=== PATIENT | male | born 1940 | race Caucasian/White ===

== ENCOUNTER 2019-04-07 10:14 | Day surgery (SDC) | payer MEDICARE, BC ==
[2019-04-05 12:24] VITALS: BMI 30.7
[~2019-04-07 10:14] MED LIST: DEXAMETHASONE SOD PHOSPHATE 10 MG/ML 1 ML VIAL IV ONE; HYDROmorphone 0.5 MG/0.5 ML SYRINGE IVP PRN; LACTATED RINGERS 1,000 ML IV SCH; LIDOCAINE 1% 20 ML VIAL (10MG/ML) FOR IV START INTRADERMA PRN; MIDAZOLAM 2 MG/2 ML VIAL IV PRN; ONDANSETRON 4 MG/2 ML VIAL IVP ONE; Pre Op ABX Message 1 EACH MISC MISCELLANE ONE; SCOPOLAMINE 1.5MG/72HR PATCH TRANSDERM ONE
[2019-04-07] MEDS ORDERED: LABETALOL 5 MG/ML VIAL MDV IV ONE ×2 (11:42→12:04)
[2019-04-07] MEDS ORDERED: LABETALOL SYRINGE 5 MG/ML IVP ONE (12:30)
[2019-04-07] MEDS ORDERED: MIDAZOLAM 2 MG/2 ML VIAL ONE (12:46)
[2019-04-07] MEDS ORDERED: SUCCINYLCHOLINE CHLORIDE 100 MG/5 ML SYR IV ONE (12:46)
[2019-04-07] MEDS ORDERED: PROPOFOL 10 MG/ML 20 ML VIAL IV ONE (12:46)
[2019-04-07] MEDS ORDERED: fentaNYL (PF) 50 MCG/ML 2 ML AMP ONE (12:46)
[2019-04-07] MEDS ORDERED: ePHEDrine SULFATE/0.9% NACL/PF 50 MG/5 ML SYRINGE IV ONE (12:46)
[2019-04-07] MEDS ORDERED: LIDOCAINE 1% INJ 10MG/ML (20 ML MDV) ONE (12:46)
[2019-04-07] MEDS ORDERED: LIDOCAINE 1%-EPI 1:100,000 20 ML VIAL SQ ONE (13:18)
[2019-04-07] MEDS ORDERED: BUPIVACAIN-EPI 0.5%-1:200,000 30 ML VIAL SQ ONE ×2 (13:18)
[2019-04-07] MEDS ORDERED: BACITRACIN 500 UNIT/GM OINT 28.4 GM TUBE TOPICAL ONE (13:50)
[2019-04-07] MEDS ORDERED: LACTATED RINGERS 1,000 ML IV ONE (14:02)
[2019-04-07] MEDS ORDERED: FERRIC SUBSULFATE (MONSELS) JAR TOPICAL ONE (14:06)
[2019-04-07 14:26] VITALS: TEMP 97.3
--- NOTE | 2019-04-07 14:32 | P.OP ---
Date of Procedure: 04/07/19 Preoperative Diagnosis: 1.8 cm left ear lesion 1.6 cm left pre-auricular lesion Postoperative Diagnosis: Same Procedure(s) Performed: Excision of a 1.8 cm left auricular lesion with a full-thickness skin graft and a complex closure of the donor site which measures 2.6 cm Shave excision of a 1.6 cm left preauricular lesion Anesthesia: JAYSHREEA Surgeon: Jacob Zavala Estimated Blood Loss (ml): 5 Pathology: other (Both lesions were sent as described above) Condition: stable Disposition: PACU Indications for Procedure: Patient had 2 lesions were he was requesting surgical removal wonders of the pars triangularis of the left ear anteriorly and the other one was of the prea uricular region. Operative Findings: Complete removal Description of Procedure: This patient was taken to the operative room and placed in the supine position. A general inhalation anesthetic was administered to the patient by mask and subsequently intubated with a cuffed endotracheal tube by the department of anesthesia and monitored throughout the entire case by the department of anesthesia. A functioning IV line was in place The left face was sterilely prepped and draped in usual fashion and anesthetized appropriately. With use of a dermal blade the left 1.6 cm preauricular lesion was removed with a shave removal. This was sent for pathology. Monsel solution was placed for hemostasis. 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 This was excised with use of a 15 blade and a circular incision. He was sent for permanent analysis. Was marked with a black suture inferiorly and a blue suture medially. He was phthisis was obtained with use of cauterization. This left a large defect of the left ear. An appropriate amount of skin was harvested from the left postauricular region with a 15 blade. This measured 2.6 cm x 2 cm. We did extensive undermining in all directions and close this in a complex fashion utilizing a 4-0 Monocryl deeply 4-0 Monocryl in the subcutaneous tissue and a 50 rapid Vicryl in a running nonlocking fashion. Excellent closure was obtained of the donor site. The skin was then cut to size and prepped and placed as an overlay graft. A bolster dressing was applied and the patient tolerated this well. Follow-up will be in the office in 1 week and the patient is to contact me if any problems should arise in the interim.
[2019-04-07 15:12] VITALS: RESP 18
[2019-04-07 15:25] VITALS: BP 175/90; PULSE 67
== END 2019-04-07 15:44 | disposition home or self-care (01) ==
LOC: OR 10:14
PROVIDERS: ATTEND Otolaryngology
DX: C44.219 Basal cell carcinoma of skin of left ear and external auricular canal (principal); L82.1 Other seborrheic keratosis; I10 Essential (primary) hypertension; E07.9 Disorder of thyroid, unspecified; E89.0 Postprocedural hypothyroidism; Z85.46 Personal history of malignant neoplasm of prostate; Z85.828 Personal history of other malignant neoplasm of skin; Z80.3 Family history of malignant neoplasm of breast; Z80.8 Family history of malignant neoplasm of other organs or systems; Z79.890 Hormone replacement therapy; Z79.899 Other long term (current) drug therapy
CPT/HCPCS: 88305; 11642; 15260; 11312; J2250; J1100; J2405; J2001; J3010; J0330; J2704

== ENCOUNTER → 2019-07-13 | Outpatient (CLI) | payer MEDICARE, BC ==
--- NOTE | 2019-07-13 09:55 | US ---
EXAMINATION TYPE: US renal artery duplex complet DATE OF EXAM: 07/13/2019 COMPARISON: NONE CLINICAL HISTORY: Q27.1 RENAL ARTERY STENOSIS. Pt states HTN in last 3 months MEASUREMENTS: RENAL SIZE: Rt Kidney: 11.1 x 6.0 x 5.8 cm Lt Kidney: 11.8 x 5.9 x 4.9 cm RESISTANCE INDEX Right: 0.7 Left: 0.7 RA/AO RATIO (< 3.5 ) Right: 2.1 Left: 1.6 RA VELOCITY ( < 180 cm/s) Right: 128 Left: 101 No evidence of renal artery stenosis, sonographic sweat sign that can be seen in renal failure. IMPRESSION: Although the resistive indices of both kidneys are upper limits of normal no convincing e vidence of renal arterial stenosis is seen of either kidney. The sonographic sweat sign is seen, whic h can be seen in renal failure.
[2019-07-13 10:02] LABS: Calcium 9.2 mg/dL (8.4-10.2); Potassium 4.5 mmol/L (3.5-5.1)
== END | disposition home or self-care (01) ==
LOC: RADUSWWP 08:23
PROVIDERS: ATTEND Internal Medicine Clinical Cardiac Electrophysiology
DX: Q27.1 Congenital renal artery stenosis (principal); Z00.00 Encounter for general adult medical examination without abnormal findings; I10 Essential (primary) hypertension; E03.9 Hypothyroidism, unspecified; Z85.46 Personal history of malignant neoplasm of prostate
CPT/HCPCS: 36415; 80048; 82088; 82533; 83835; 93975

== ENCOUNTER 2020-08-24 10:53 | Observation (INO) | payer MEDICARE, BC ==
[2020-08-24] MEDS ORDERED: SODIUM CHLORIDE 0.9% 500 ML 500 ML IV STA (11:17)
--- NOTE | 2020-08-24 11:22 | ED ---
General Adult HPI - General Chief complaint: Recheck/Abnormal Lab/Rx Stated complaint: WEAKNESS Time Seen by Provider: 08/24/20 11:00 Source: patient, RN notes reviewed, old records reviewed Mode of arrival: wheelchair Limitations: no limitations - History of Present Illness Initial comments: This is a 80-year-old male with a past medical history significant for high blood pressure. Patient comes in today because he has been weak for 1 month. 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 He was told that his heart rate was 45 but that there needs not be any intervention. Patient states his heart rate normally is about 70. Patient denies any fever chills or cough per patient denies any chest pain difficulty breathing or shortness of breath per patient states she's just extremely weak and fatigued. Patient states even walking a little distance he is very weak. Patient denies any abdominal pain patient denies nausea vomiting or diarrhea. Patient denies any injury or trauma. - Related Data Home Medications Medication Instructions Recorded Confirmed Cholecalciferol (Vitamin D3) 2,000 unit PO DAILY 04/05/19 08/24/20 [Vitamin D3] Latanoprost/Pf [Latanoprost 0.005% 1 drop BOTH EYES HS 04/05/19 08/24/20 Eye Drop] Levothyroxine Sodium 200 mcg PO DAILY 04/05/19 08/24/20 Timolol 0.5% Ophth Soln [Timoptic 1 drop BOTH EYES DAILY 04/05/19 08/24/20 0.5% Ophth Soln] Aspirin EC [Ecotrin Low Dose] 81 mg PO DAILY 08/24/20 08/24/20 Atorvastatin Calcium [Lipitor] 40 mg PO HS 08/24/20 08/24/20 Calcium Carbonate [Calcium] 600 mg PO DAILY 08/24/20 08/24/20 Carvedilol [Coreg] 12.5 mg PO BID 08/24/20 08/24/20 Multivitamins, Thera [Multivitamin 1 tab PO DAILY 08/24/20 08/24/20 (formulary)] NIFEdipine [NIFEdipine ER] 90 mg PO HS 08/24/20 08/24/20 Triamterene/Hydrochlorothiazid 1 cap PO DAILY 08/24/20 08/24/20 [Dyazide 37.5-25 Capsule] Valsartan [Diovan] 320 mg PO DAILY 08/24/20 08/24/20 Allergies Allergy/AdvReac Type Severity Reaction Status Date / Time No Known Allergies Allergy Verified 08/24/20 11:59 Review of Systems ROS Statement: Those systems with pertinent positive or pertinent negative responses have been documented in the HPI. ROS Other: All systems not noted in ROS Statement are negative. Past Medical History Past Medical History: Cancer, CVA/TIA, Eye Disorder, Hypertension, Thyroid D isorder Additional Past Medical History / Comment(s): HX STROKE BEHIND RT EYE. GLAUCOMA. BASAL CELL CA TO LT EAR History of Any Multi-Drug Resistant Organisms: None Reported Past Surgical History: Adenoidectomy, Back Surgery, Joint Replacement, Orthopedic Surgery, Tonsillectomy Additional Past Surgical History / Comment(s): RT CORNEAL TRANSPLANT. COLONOSCOPY. RT TKA. RT SHOULDER SX Past Anesthesia/Blood Transfusion Reactions: No Reported Reaction Past Psychological History: No Psychological Hx Reported Smoking Status: Never smoker Past Alcohol Use History: Occasional Past Drug Use History: None Reported - Past Family History Mother Family Medical History: Cancer General Exam - General Exam Comments Initial Comments: GENERAL: Patient is well-developed and well-nourished. Patient is nontoxic and well- hydrated and is in no acute distress. ENT: Neck is soft and supple. No significant lymphadenopathy is noted. Oropharynx is clear. Moist mucous membranes. Neck has full range of motion without eliciting any pain. EYES: The sclera were anicteric and conjunctiva were pink and moist. Extraocular movements were intact and pupils were equal round and reactive to light. Eyelids were unremarkable. PULMONARY: Unlabored respirations. Good breath sounds bilaterally. No audible rales rhonchi or wheezing was noted. CARDIOVASCULAR: Patient is bradycardic at 45 beats a minute. ABDOMEN: Soft and nontender with normal bowel sounds. SKIN: Skin is clear with no lesions or rashes and otherwise unremarkable. NEUROLOGIC: Patient is alert and oriented x3. Cranial nerves II through XII are grossly intact. Motor and sensory are also intact. Normal speech, volume and content. Symmetrical smile. MUSCULOSKELETAL: Normal extremities with adequate strength and full range of motion. No lower extremity swelling or edema. No calf tenderness. LYMPHATICS: No significant lymphadenopathy is noted PSYCHIATRIC: Normal psychiatric evaluation. Limitations: no limitations Course Vital Signs 08/24/20 08/24/20 08/24/20 10:57 12:10 13:04 Temperature 98.3 F Pulse Rate 49 L 53 L 51 L Respiratory 16 18 16 Rate Blood Pressure 177/103 176/90 185/85 O2 Sat by Pulse 100 98 98 Oximetry Medical Decision Making - Medical Decision Making EKG shows atrial fibrillation at a rate of 45 bpm QRS is 90 QT intervals 434 QTC is 375. Patient'ssegment elevation or depression. I spoke with Dr. Mccord he agreed to admit the patient admitted the patient I consult to cardiology. - Lab Data Result diagrams: 08/24/20 11:21 08/24/20 11:21 Lab Results 08/24/20 08/24/20 08/24/20 Range/Units 11:21 11:21 11:21 WBC 7.8 (3.8-10.6) k/uL RBC 4.21 L (4.30-5.90) m/uL Hgb 13.5 (13.0-17.5) gm/dL Hct 41.0 (39.0-53.0) % MCV 97.4 (80.0-100.0) fL MCH 32.2 (25.0-35.0) pg MCHC 33.0 (31.0-37.0) g/dL RDW 12.5 (11.5-15.5) % Plt Count 236 (150-450) k/uL Neutrophils % 59 % Lymphocytes % 22 % Monocytes % 11 % Eosinophils % 4 % Basophils % 1 % Neutrophils # 4.6 (1.3-7.7) k/uL Lymphocytes # 1.7 (1.0-4.8) k/uL Monocytes # 0.9 (0-1.0) k/uL Eosinophils # 0.3 (0-0.7) k/uL Basophils # 0.1 (0-0.2) k/uL PT 10.1 (9.0-12.0) sec INR 1.0 (<1.2) APTT 22.9 (22.0-30.0) sec Sodium (137-145) mmol/L Potassium (3.5-5.1) mmol/L Chloride (98-107) mmol/L Carbon Dioxide (22-30) mmol/L Anion Gap mmol/L BUN (9-20) mg/dL Creatinine (0.66-1.25) mg/dL Est GFR (CKD-EPI)AfAm (>60 ml/min/1.73 sqM) Est GFR (CKD-EPI)NonAf (>60 ml/min/1.73 sqM) Glucose (74-99) mg/dL Plasma Lactic Acid Jarret (0.7-2.0) mmol/L Calcium (8.4-10.2) mg/dL Magnesium (1.6-2.3) mg/dL Total Bilirubin (0.2-1.3) mg/dL AST (17-59) U/L ALT (4-49) U/L Alkaline Phosphatase (38-126) U/L Troponin I (0.000-0.034) ng/mL Total Protein (6.3-8.2) g/dL Albumin (3.5-5.0) g/dL Urine Color Yellow Urine Appearance Clear (Clear) Urine pH 6.5 (5.0-8.0) Ur Specific [place] 1.017 (1.001-1.035) Urine Protein Negative (Negative) Urine Glucose (UA) Negative (Negative) Urine Ketones Negative (Negative) Urine Blood Negative (Negative) Urine Nitrite Negative (Negative) Urine Bilirubin Negative (Negative) Urine Urobilinogen <2.0 (<2.0) mg/dL Ur Leukocyte Esterase Negative (Negative) 08/24/20 08/24/20 08/24/20 Range/Units 11:21 11:21 11:21 WBC (3.8-10.6) k/uL RBC (4.30-5.90) m/uL Hgb (13.0-17.5) gm/dL Hct (39.0-53.0) % MCV (80.0-100.0) fL MCH (25.0-35.0) pg MCHC (31.0-37.0) g/dL RDW (11.5-15.5) % Plt Count (150-450) k/uL Neutrophils % % Lymphocytes % % Monocytes % % Eosinophils % % Basophils % % Neutrophils # (1.3-7.7) k/uL Lymphocytes # (1.0-4.8) k/uL Monocytes # (0-1.0) k/uL Eosinophils # (0-0.7) k/uL Basophils # (0-0.2) k/uL PT (9.0-12.0) sec INR (<1.2) APTT (22.0-30.0) sec Sodium 137 (137-145) mmol/L Potassium 4.9 (3.5-5.1) mmol/L Chloride 104 (98-107) mmol/L Carbon Dioxide 27 (22-30) mmol/L Anion Gap 6 mmol/L BUN 27 H (9-20) mg/dL Creatinine 1.18 (0.66-1.25) mg/dL Est GFR (CKD-EPI)AfAm 68 (>60 ml/min/1.73 sqM) Est GFR (CKD-EPI)NonAf 58 (>60 ml/min/1.73 sqM) Glucose 93 (74-99) mg/dL Plasma Lactic Acid Jarret 1.3 (0.7-2.0) mmol/L Calcium 9.4 (8.4-10.2) mg/dL Magnesium 2.2 (1.6-2.3) mg/dL Total Bilirubin 0.8 (0.2-1.3) mg/dL AST 38 (17-59) U/L ALT 28 (4-49) U/L Alkaline Phosphatase 72 (38-126) U/L Troponin I <0.012 (0.000-0.034) ng/mL Total Protein 7.4 (6.3-8.2) g/dL Albumin 4.5 (3.5-5.0) g/dL Urine Color Urine Appearance (Clear) Urine pH (5.0-8.0) Ur Specific [place] (1.001-1.035) Urine Protein (Negative) Urine Glucose (UA) (Negative) Urine Ketones (Negative) Urine Blood (Negative) Urine Nitrite (Negative) Urine Bilirubin (Negative) Urine Urobilinogen (<2.0) mg/dL Ur Leukocyte Esterase (Negative) Disposition Clinical Impression: Bradycardia, Weakness Disposition: ADMITTED IP TO THIS HOSP Referrals: Rosendo Garrett MD [Primary Care Provider] - 1-2 days Time of Disposition: 13:15
[2020-08-24 11:37] LABS: Appearance,Urine Clear (Clear); Bilirubin,Urine Negative (Negative); Blood,Urine Negative (Negative); Color,Urine Yellow; Glucose,Urine (UA) Negative (Negative); Ketones,Urine Negative (Negative); Leukocyte Esterase,Urine Negative (Negative); Nitrite,Urine Negative (Negative); PH, Urine 6.5 (5.0-8.0); Protein,Urine Negative (Negative); Specific Gravity,Urine 1.017 (1.001-1.035); Urobilinogen,Urine <2.0 mg/dL (<2.0)
[2020-08-24 11:43] LABS: Basophils # (A) 0.1 k/uL (0-0.2); Basophils % (A) 1 %; Eosinophils # (A) 0.3 k/uL (0-0.7); Eosinophils % (A) 4 %; HGB 13.5 gm/dL (13.0-17.5); Lymphocytes # (A) 1.7 k/uL (1.0-4.8); Lymphocytes % (A) 22 %; MCH 32.2 pg (25.0-35.0); MCV 97.4 fL (80.0-100.0); Mean Platelet Volume 8.3; Monocytes # (A) 0.9 k/uL (0-1.0); Monocytes % (A) 11 %; Neutrophils # (A) 4.6 k/uL (1.3-7.7); Neutrophils % (A) 59 %; Platelet Count 236 k/uL (150-450); RBC 4.21 m/uL (4.30-5.90); RDW 12.5 % (11.5-15.5); WBC 7.8 k/uL (3.8-10.6)
[2020-08-24 11:52] LABS: Albumin 4.5 g/dL (3.5-5.0); Calcium 9.4 mg/dL (8.4-10.2); Magnesium 2.2 mg/dL (1.6-2.3); Potassium 4.9 mmol/L (3.5-5.1); Total Bilirubin 0.8 mg/dL (0.2-1.3); Total Protein 7.4 g/dL (6.3-8.2)
[2020-08-24 12:19] LABS: Partial Thromboplastin Time 22.9 sec (22.0-30.0); Prothrombin Time 10.1 sec (9.0-12.0)
--- NOTE | 2020-08-24 13:05 | XR ---
EXAMINATION TYPE: XR chest 2V DATE OF EXAM: 08/24/2020 CLINICAL HISTORY: Weakness TECHNIQUE: Frontal and lateral views of the chest are obtained. COMPARISON: None FINDINGS: The cardiomediastinal silhouette is within normal limits for size. Pulmonary vasculature i s normal. There is no focal air space opacity, pleural effusion, or pneumothorax seen. Degenerative c hanges of the spine and left shoulder. IMPRESSION: No acute cardiopulmonary process.
[2020-08-24] MEDS ORDERED: SODIUM CHLORIDE 0.9% 1,000 ML IV ONE (13:15)
[2020-08-24] MEDS ORDERED: HYDROcodone/APAP 5-325MG 1 EACH TAB PO PRN (20:13)
[2020-08-24] MEDS ORDERED: hydrALAZINE HCL 20 MG/ML 1 ML VIAL IVP PRN (20:13)
[2020-08-24] MEDS ORDERED: ALPRAZolam 0.25 MG TAB PO PRN (20:13)
[2020-08-24 20:51] LABS: C Reactive Protein 5.6 mg/L (<10.0)
--- NOTE | 2020-08-24 21:08 | CT ---
EXAMINATION TYPE: CT brain wo con DATE OF EXAM: 08/24/2020 COMPARISON: None HISTORY: weakness, new onset a-fib CT DLP: 1090.4 mGycm Automated exposure control for dose reduction was used. There is cerebral atrophy. There is patchy hypodensity in the periventricular white matter. There is no mass effect nor midline shift. There is no sign of intracranial hemorrhage. The calvarium is intac t. IMPRESSION: Cerebral atrophy and chronic small vessel ischemia. No acute intracranial abnormality.
[2020-08-24] MEDS: HEPARIN SODIUM,PORCINE 5,000 UNIT/ML 1 ML VIAL SQ SCH (21:27)
[2020-08-24] MEDS: ATORVASTATIN 40 MG TAB PO SCH (21:28)
[2020-08-24] MEDS: LATANOPROST 0.005% OPHTH DROPS 2.5 ML BTL BOTH EYES SCH (21:28)
--- NOTE | 2020-08-24 21:53 | HP ---
HISTORY AND PHYSICAL DATE OF SERVICE: 08/24/2020 CHIEF COMPLAINTS: Weakness and bradycardia. HISTORY OF PRESENT ILLNESS: This 80-year-old gentleman with a past medical history of multiple medical problems, including history of CVA, TIA, history of hypertension, history of hypothyroidism, history of stroke, history of glaucoma, history of DJD, being followed by Dr. Rosendo Garrett in the outpatient setting, was on multiple medications. Medications were being adjusted in the outpatient setting. The thyroid medication was increased recently. The patient is complaining of significant weakness for the last several weeks, at least a month. The patient reports feeling significantly weak, unable to walk some distance. The patient was found to have consistent bradycardia in the 50s, and the patient came to [facility], was admitted for further evaluation and treatment. Blood pressure was elevated. There is no history of any fever, rigor or chills. No history of headache, loss of consciousness, seizures at this time. The evaluation in the ER showed hemoglobin 13.5. TSH was not available. UA was unremarkable. EKG showed possibly junctional rhythm or atrial fibrillation with a slow ventricular rate. PAST MEDICAL HISTORY: History of CVA, TIA, history of hypothyroidism, hypertension, history of stroke behind eye, glaucoma. MEDICATIONS: Nifedipine, multivitamins, calcium, Diovan, Dyazide, Ecotrin, Coreg, Lipitor, Timoptic, levothyroxine, latanoprost, vitamin D3. ALLERGIES: NONE. FAMILY HISTORY: History of cancer in the family. SOCIAL HISTORY: History of alcohol intake. No history of smoking. REVIEW OF SYSTEMS: ENT: Diminished hearing. Diminished vision. CARDIOVASCULAR SYSTEM: As mentioned earlier. RESPIRATORY SYSTEM: As mentioned earlier. GI: No nausea, vomiting. : No dysuria or retention. NERVOUS SYSTEM: No numbness, weakness. ALLERGY/IMMUNOLOGY: No asthma, hayfever. MUSCULOSKELETAL: As mentioned earlier. HEMATOLOGY/ONCOLOGY: No history of anemia. ENDOCRINE: No history of diabetes, hypothyroidism. CONSTITUTIONAL: As mentioned earlier. DERMATOLOGY: Negative. RHEUMATOLOGY: Negative. PSYCHIATRY: As mentioned earlier. PHYSICAL EXAMINATION: Patient is alert, oriented x3. Pulse is 69, blood pressure 172/82, respiration 18, temperature 97.9. No orthostatic changes. HEENT: Conjunctivae normal. NECK: No jugular venous distention. CARDIOVASCULAR SYSTEM: S1, S2 muffled. RESPIRATORY SYSTEM: Breath sounds diminished at the bases. No rhonchi. No crackles. ABDOMEN: Soft, non-tender. Obese. LEGS: No edema. No swelling. NERVOUS SYSTEM: Higher functions as mentioned earlier. Moves all 4 limbs. No focal motor or sensory deficit. LYMPHATICS: No lymph node palpable in neck, axillae or groin. SKIN: No ulcer, rash, bleeding. JOINTS: No active deforming arthropathy. LABS/IMAGING: Labs at this time show WBC 7.3, hemoglobin 13.5. BUN is 27. The chest x-ray, which was reviewed personally by me, showed no acute abnormality. EKG reviewed. ASSESSMENT: 1. Generalized weakness and tiredness, possibly bradycardia. 2. Possible sinus bradycardia versus atrial fibrillation with severe bradycardia. 3. History of cerebrovascular accident, transient ischemic attack. 4. Hypertension. 5. Hypothyroidism. 6. History of stroke behind the right eye. 7. History of glaucoma. 8. History of basal cell carcinoma. 9. History of adenoidectomy. 10.History of back surgery. 11.History of corneal transplant. 12.History of shoulder surgery. 13.FULL CODE. RECOMMENDATIONS AND DISCUSSION: In this 80-year-old gentleman who presented with multiple complex medical issues, we will monitor the patient closely, we will continue the current medications. The patient has significant bradycardia, which could cause generalized tiredness, but I would also recommend other evaluations to rule out other causes, including a serum cortisol level. Otherwise, TSH also will be checked. The medication had been adjusted in the outpatient setting. We will hold some of the cardiac medications. Obtain a cardiology evaluation. Prognosis guarded because of multiple complex medical issues. I would also recommend a CT scan of the brain. Prognosis guarded. A copy of this dictation is being forwarded to Dr. Rosendo Garrett, who is the primary physician. MMODL / IJN: [id number] /
[2020-08-25 05:10] LABS: Basophils % (A) 1 %; Eosinophils # (A) 0.2 k/uL (0-0.7); Eosinophils % (A) 4 %; HGB 12.8 gm/dL (13.0-17.5); Lymphocytes # (A) 1.3 k/uL (1.0-4.8); Lymphocytes % (A) 21 %; MCHC 32.9 g/dL (31.0-37.0); MCV 97.2 fL (80.0-100.0); Mean Platelet Volume 8.1; Monocytes # (A) 0.5 k/uL (0-1.0); Monocytes % (A) 8 %; Neutrophils % (A) 65 %; Platelet Count 198 k/uL (150-450); RBC 4.01 m/uL (4.30-5.90); RDW 12.3 % (11.5-15.5); WBC 6.2 k/uL (3.8-10.6)
[2020-08-25 05:44] LABS: Calcium 9.1 mg/dL (8.4-10.2); Potassium 4.1 mmol/L (3.5-5.1)
[2020-08-25] MEDS: LEVOTHYROXINE 100 MCG TAB PO SCH (06:48)
[2020-08-25] MEDS: PANTOPRAZOLE 40 MG TABLET PO SCH (06:48)
[2020-08-25] MEDS ORDERED: carvediloL 3.125 MG TAB PO SCH (07:30)
[2020-08-25] MEDS: CALCIUM CARBONATE 500 MG CHEWABLE PO SCH (08:52)
[2020-08-25] MEDS: MULTIVITAMINS, THERA 1 EACH TAB PO SCH (08:52)
[2020-08-25] MEDS: VALSARTAN 160 MG TAB PO SCH (08:52)
[2020-08-25] MEDS: ASPIRIN 81 MG PO SCH (08:52)
[2020-08-25] MEDS: CHOLECALCIFEROL 1,000 UNIT TAB PO SCH (08:52)
[2020-08-25] MEDS: HEPARIN SODIUM,PORCINE 5,000 UNIT/ML 1 ML VIAL SQ SCH ×2 (08:53→21:22)
[2020-08-25] MEDS ORDERED: TIMOLOL 0.5% OPHTH DROPS 5 ML BTL BOTH EYES SCH (09:00)
[2020-08-25] MEDS ORDERED: hydrALAZINE HCL 25 MG TAB PO SCH (10:45)
--- NOTE | 2020-08-25 11:54 | P.CRDCN ---
History of Present Illness History of present illness: HISTORY OF PRESENTING ILLNESS This is a pleasant 80-year-old male past medical history significant for hypertension. He follows in the office with Dr. Washington. We have been asked to see in consultation for bradycardia. He was sent over from his PCPs office secondary to noted bradycardia. The patient denies symptoms of dizziness, shortness of breath, chest pain, palpitations, syncope, nausea, vomiting or diaphoresis. He states he's always been told that his heart rate is somewhat ir regular but he is always been asymptomatic. Initial EKG reveals bradycardia with a heart rate of 45, P waves are noted but are multifocal. Not all QRS complexes are preceded by a P-wave however most predominantly are. Telemetry tracings reviewed. It appears she is having some sort of multifocal atrial Beats. No clear atrial fibrillation noted. Chest x-ray is negative for an acute cardiopulmonary process. CT of the brain reveals cerebral atrophy and chronic small vessel ischemia with no acute intracranial abnormality. Laboratory data reviewed, WBC 6.2, hemoglobin 12.8, platelets 198, sodium 139, potassium 4.1, creatinine 1.01, magnesium 2.2, cardiac enzymes negative 1, TSH 0.86. Current daily cardiac medications include atorvastatin 40 mg at bedtime, carvedilol 12.5 mg twice a day, aspirin 81 mg daily, Dyazide 37.5/25 mg daily, valsartan 320 mg daily and nifedipine 90 mg at bedtime. The patient states he has had very difficult to control blood pressure in the past. Renal artery duplex obtained last year was unremarkable. REVIEW OF SYSTEMS At the time of my exam: CONSTITUTIONAL: Denies fever or chills. CARDIOVASCULAR: Denies chest pain, shortness of breath, orthopnea, PND or palpitations. RESPIRATORY: Denies cough. GASTROINTESTINAL: Denies abdominal pain, diarrhea, constipation, nausea or vomiting. MUSCULOSKELETAL: Denies myalgias. NEUROLOGIC: Denies numbness, tingling or weakness. ENDOCRINE: Denies fatigue, weight change, polydipsia or polyurina. GENITOURINARY: Denies burning, hematuria or urgency with micturation. HEMATOLOGIC: Denies history of anemia or bleeding. PHYSICAL EXAMINATION Blood pressure 167/87 heart rate 62 afebrile and maintaining oxygen saturation on room air. CONSTITUTIONAL: No apparent distress. HEENT: Head is normocephalic. Pupils are equal, round. Sclerae anicteric. Mucous membranes of the mouth are moist. No JVD. No carotid bruit. CHEST EXAMINATION: Lungs are clear to auscultation. No chest wall tenderness is noted on palpation or with deep breathing. HEART EXAMINATION: Regular rate and rhythm. S1, S2 heard. No murmurs, gallops or rub. ABDOMEN: Soft, nontender. Positive bowel sounds. EXTREMITIES: 2+ peripheral pulses, no lower extremity edema and no calf tenderness. NEUROLOGIC EXAMINATION: Patient is awake, alert and oriented x3. ASSESSMENT Multifocal atrial rhythm, asymptomatic Hypertension PLAN No evidence of atrial fibrillation on telemetry or EKGs. Rhythm Multifocal atrial beats. He is asymptomatic and has no symptoms of dizziness or near syncope. Discontinue Corag. Initiate hydralazine 25 mg twice a day. Echocardiogram has been obtained and will be reviewed. If his blood pressure is stable he may be discharged home with an outpatient event monitor. Recommend follow-up with Dr. June in the office in one to 2 weeks. Thank you kindly for this consultation. Nurse Practitioner note has been reviewed, I agree with a documented findings and plan of care. Patient was seen and examined. Past Medical History Past Medical History: Cancer, CVA/TIA, Eye Disorder, Hypertension, Thyroid Disorder Additional Past Medical History / Comment(s): HX STROKE BEHIND RT EYE. GLAUCOMA. BASAL CELL CA TO LT EAR History of Any Multi-Drug Resistant Organisms: None Reported Past Surgical History: Adenoidectomy, Back Surgery, Joint Replacement, Orthopedic Surgery, Tonsillectomy Additional Past Surgical History / Comment(s): RT CORNEAL TRANSPLANT. COLONOSCOPY. RT TKA. RT SHOULDER SX Past Anesthesia/Blood Transfusion Reactions: No Reported Reaction Past Psychological History: No Psychological Hx Reported Smoking Status: Never smoker Past Alcohol Use History: Occasional Past Drug Use History: None Reported - Past Family History Mother Family Medical History: Cancer Medications and Allergies Home Medications Medication Instructions Recorded Confirmed Type Cholecalciferol (Vitamin D3) 2,000 unit PO DAILY 04/05/19 08/24/20 History [Vitamin D3] Latanoprost/Pf [Latanoprost 0.005% 1 drop BOTH EYES HS 04/05/19 08/24/20 History Eye Drop] Levothyroxine Sodium 200 mcg PO DAILY 04/05/19 08/24/20 History Timolol 0.5% Ophth Soln [Timoptic 1 drop BOTH EYES DAILY 04/05/19 08/24/20 History 0.5% Ophth Soln] Aspirin EC [Ecotrin Low Dose] 81 mg PO DAILY 08/24/20 08/24/20 History Atorvastatin Calcium [Lipitor] 40 mg PO HS 08/24/20 08/24/20 History Calcium Carbonate [Calcium] 600 mg PO DAILY 08/24/20 08/24/20 History Carvedilol [Coreg] 12.5 mg PO BID 08/24/20 08/24/20 History Multivitamins, Thera [Multivitamin 1 tab PO DAILY 08/24/20 08/24/20 History (formulary)] NIFEdipine [NIFEdipine ER] 90 mg PO HS 08/24/20 08/24/20 History Triamterene/Hydrochlorothiazid 1 cap PO DAILY 08/24/20 08/24/20 History [Dyazide 37.5-25 Capsule] Valsartan [Diovan] 320 mg PO DAILY 08/24/20 08/24/20 History Allergies Allergy/AdvReac Type Severity Reaction Status Date / Time No Known Allergies Allergy Verified 08/24/20 11:59 Physical Exam Vitals: Vital Signs Temp Pulse Pulse Pulse Pulse Pulse Resp 08/25/20 09:00 97.9 F 62 69 74 64 18 08/25/20 03:00 98.0 F 61 16 08/24/20 21:00 97.9 F 56 L 16 08/24/20 18:26 69 74 64 08/24/20 15:00 97.9 F 54 L 18 08/24/20 13:54 98.4 F 56 L 18 08/24/20 13:04 51 L 16 08/24/20 12:10 53 L 18 BP BP BP BP BP Pulse Ox 08/25/20 09:00 167/87 96 08/25/20 03:00 138/80 98 08/24/20 21:00 160/78 98 08/24/20 18:26 172/82 149/83 158/85 08/24/20 15:00 178/78 97 08/24/20 13:54 179/69 98 08/24/20 13:04 185/85 98 08/24/20 12:10 176/90 98 Intake and Output 08/24/20 08/25/20 08/25/20 22:59 06:59 14:59 Intake Total 220 120 Balance 220 120 Intake: Oral 220 120 Other: Voiding Method Toilet Toilet Toilet # Voids 2 3 Results 08/25/20 04:43 08/25/20 04:43 Cardiac Enzymes 08/24/20 08/24/20 Range/Units 11:21 11:21 AST 38 (17-59) U/L Troponin I <0.012 (0.000-0.034) ng/mL Coagulation 08/24/20 Range/Units 11:21 PT 10.1 (9.0-12.0) sec APTT 22.9 (22.0-30.0) sec CBC 08/25/20 Range/Units 04:43 WBC 6.2 (3.8-10.6) k/uL RBC 4.01 L (4.30-5.90) m/uL Hgb 12.8 L (13.0-17.5) gm/dL Hct 39.0 (39.0-53.0) % Plt Count 198 (150-450) k/uL Comprehensive Metabolic Panel 08/24/20 08/25/20 Range/Units 11:21 04:43 Sodium 137 139 (137-145) mmol/L Potassium 4.9 4.1 (3.5-5.1) mmol/L Chloride 104 105 (98-107) mmol/L Carbon Dioxide 27 27 (22-30) mmol/L BUN 27 H 19 (9-20) mg/dL Creatinine 1.18 1.01 (0.66-1.25) mg/dL Glucose 93 103 H (74-99) mg/dL Calcium 9.4 9.1 (8.4-10.2) mg/dL AST 38 (17-59) U/L ALT 28 (4-49) U/L Alkaline Phosphatase 72 (38-126) U/L Total Protein 7.4 (6.3-8.2) g/dL Albumin 4.5 (3.5-5.0) g/dL Current Medications Generic Name Dose Route Start Last Admin Trade Name Freq PRN Reason Stop Dose Admin Hydrocodone Bitart/Acetaminophen 1 each 08/24/20 20:13 Hydrocodone/Apap 5-325mg 1 Each Tab PO Q6HR PRN Pain Alprazolam 0.25 mg 08/24/20 20:13 Alprazolam 0.25 Mg Tab PO TID PRN Anxiety Aspirin 81 mg 08/25/20 09:00 08/25/20 08:52 Aspirin 81 Mg PO 81 mg DAILY ANASTACIO Administration Atorvastatin Calcium 40 mg 08/24/20 21:00 08/24/20 21:28 Atorvastatin 40 Mg Tab PO 40 mg HS ANASTACIO Administration Calcium Carbonate/Glycine 500 mg 08/25/20 09:00 08/25/20 08:52 Calcium Carbonate 500 Mg Chewable PO 500 mg DAILY ANASTACIO Administration Cholecalciferol 2,000 unit 08/25/20 09:00 08/25/20 08:52 Cholecalciferol 1,000 Unit Tab PO 2,000 unit DAILY ANASTACIO Administration Heparin Sodium (Porcine) 5,000 unit 08/24/20 21:00 08/25/20 08:53 Heparin Sodium,Porcine 5,000 Unit/Ml 1 Ml Vial SQ 5,000 unit Q12HR ANASTACIO Administration Hydralazine HCl 25 mg 08/25/20 10:45 08/25/20 11:12 Hydralazine Hcl 25 Mg Tab PO 25 mg BID ANASTACIO Administration Latanoprost 1 drops 08/24/20 21:00 08/24/20 21:28 Latanoprost 0.005% Ophth Drops 2.5 Ml Btl BOTH EYES 1 drops HS ANASTACIO Administration Levothyroxine Sodium 200 mcg 08/25/20 06:30 08/25/20 06:48 Levothyroxine 100 Mcg Tab PO 200 mcg 0630 ANASTACIO Administration Multivitamins 1 each 08/25/20 09:00 08/25/20 08:52 Multivitamins, Thera 1 Each Tab PO 1 each DAILY ANASTACIO Administration Nifedipine 90 mg 08/25/20 21:00 Nifedipine Xl 90 Mg Tab.Er.24 PO HS ANASTACIO Pantoprazole Sodium 40 mg 08/25/20 07:30 08/25/20 06:48 Pantoprazole 40 Mg Tablet PO 40 mg [id number] ANASTACIO Administration Valsartan 320 mg 08/25/20 09:00 08/25/20 08:52 Valsartan 160 Mg Tab PO 320 mg DAILY ANASTACIO Administration Intake and Output 08/24/20 08/25/20 08/25/20 22:59 06:59 14:59 Intake Total 220 120 Balance 220 120 Intake: Oral 220 120 Other: Voiding Method Toilet Toilet Toilet # Voids 2 3 08/25/20 04:43 08/25/20 04:43
--- NOTE | 2020-08-25 15:29 | PN ---
PROGRESS NOTE DATE OF SERVICE: 08/25/2020 This 80-year-old gentleman who was admitted with severe bradycardia as well as weakness, is being closely monitored. No chest pain. No palpitations. No fever. Cardiology has seen the patient and recommended discontinue Coreg, initiate hydralazine 25 mg p.o. twice daily. No chest pain. No palpitations. No fever. PHYSICAL EXAMINATION: Alert and oriented x3. Pulse is 51, blood pressure 139/72, respirations 16, temperature 97.9, pulse ox 98% on room air. HEENT: Conjunctivae normal. NECK: No JVD. CARDIOVASCULAR: S1, S2 muffled. RESPIRATORY: Breath sounds diminished in the bases. Scattered rhonchi and crackles. ABDOMEN: Soft. Nontender. LEGS: No edema. No swelling. NERVOUS SYSTEM: No focal deficits. LABS: WBC 6.2, hemoglobin 12.8. Other labs are noted. ASSESSMENT: 1. Generalized weakness and tiredness, possibly bradycardia. 2. Possible sinus bradycardia versus atrial fibrillation with severe bradycardia. 3. History of cerebrovascular accident/transient ischemic attack. 4. Hypertension. 5. Hypothyroidism. 6. History of stroke behind the right eye. 7. History of glaucoma. 8. History of basal cell carcinoma. 9. History of adenoidectomy. 10.History of back surgery. 11.History of corneal transplant. 12.History of shoulder surgery. 13.FULL CODE. RECOMMENDATIONS AND DISCUSSION: Recommend to continue current medications, symptomatic treatment. Cortisol level was normal. Otherwise, I recommend continue with hydralazine and stop the nifedipine. Increase ambulation. Guarded prognosis because of multiple complex medical issues and further recommendations to follow. MMODL / IJN: [id number] /
[2020-08-25] MEDS: hydrALAZINE HCL 50 MG TAB PO SCH ×2 (15:50→21:22)
--- NOTE | 2020-08-25 16:43 | ECHOF ---
Referral Reason:bradycardia MEASUREMENTS -------- HEIGHT: 180.3 cm WEIGHT: 104.3 kg BP: 158/85 RVIDd: 3.3 cm (< 3.3) IVSd: 1.3 cm (0.6 - 1.1) LVIDd: 4.4 cm (3.9 - 5.3) LVPWd: 1.4 cm (0.6 - 1.1) IVSs: 1.9 cm LVIDs: 3.5 cm LVPWs: 1.8 cm LA Diam: 4.0 cm (2.7 - 3.8) LAESV Index (A-L): 30.44 ml/m Ao Diam: 3.8 cm (2.0 - 3.7) AV Cusp: 1.4 cm (1.5 - 2.6) MV EXCURSION: 15.965 mm (> 18.000) MV EF SLOPE: 54 mm/s (70 - 150) EPSS: 1.1 cm MV E Phillip: 0.99 m/s MV DecT: 304 ms MV A Phillip: 0.95 m/s MV E/A Ratio: 1.04 AV maxP.84 mmHg AV meanP.21 mmHg RAP: 5.00 mmHg RVSP: 39.10 mmHg FINDINGS -------- This was a technically good study. The left ventricular size is normal. There is moderate concentric left ventricular hypertrophy. O verall left ventricular systolic function is low-normal with, an EF between 50 - 55 %. Sigmoid shap ed septum with focal hypertrophy of the basal septum. The right ventricle is mildly enlarged. LA is midly dilated 29-33ml/m2. The right atrium is normal in size. Interatrial and interventricular septum intact. Aortic valve is trileaflet and is mildly thickened. There is mild aortic valve sclerosis. There i s mild aortic stenosis present. Peak/mean gradient across the Aortic Valve is 16.84mmHg / 8.21mmHg. Mild mitral annular calcification present. Mild tricuspid regurgitation present. There is mild pulmonary hypertension. The right ventricular systolic pressure, as measured by Doppler, is 39.10mmHg. Trace/mild (physiologic) pulmonic regurgitation. The aortic root is dilated measuring 3.8cm. Normal inferior vena cava with normal inspiratory collapse consistent with estimated right atrial pre ssure of 5 mmHg. There is no pericardial effusion. CONCLUSIONS -------- 1. The left ventricular size is normal. 2. There is moderate concentric left ventricular hypertrophy. 3. Overall left ventricular systolic function is low-normal with, an EF between 50 - 55 %. 4. Sigmoid shaped septum with focal hypertrophy of the basal septum. 5. The right ventricle is mildly enlarged. 6. LA is midly dilated 29-33ml/m2. 7. Aortic valve is trileaflet and is mildly thickened. 8. There is mild aortic valve sclerosis. 9. There is mild aortic stenosis present. 10. Peak/mean gradient across the Aortic Valve is 16.84mmHg / 8.21mmHg. 11. Mild mitral annular calcification present. 12. Mild tricuspid regurgitation present. 13. There is mild pulmonary hypertension. 14. The right ventricular systolic pressure, as measured by Doppler, is 39.10mmHg. 15. Trace/mild (physiologic) pulmonic regurgitation. 16. The aortic root is dilated measuring 3.8cm. 17. There is no pericardial effusion. INSULATION BOARD COATER OPERATOR: Charlotte Clifton RDCS
[2020-08-25] MEDS ORDERED: TEMAZEPAM 15 MG CAP PO PRN (17:16)
[2020-08-25] MEDS ORDERED: NIFEdipine XL 90 MG TAB.ER.24 PO SCH (21:00)
[2020-08-25] MEDS: ATORVASTATIN 40 MG TAB PO SCH (21:21)
[2020-08-25] MEDS: LATANOPROST 0.005% OPHTH DROPS 2.5 ML BTL BOTH EYES SCH (21:22)
[2020-08-26 05:46] LABS: Basophils % (A) 0 %; Eosinophils # (A) 0.2 k/uL (0-0.7); Eosinophils % (A) 3 %; HCT 40.6 % (39.0-53.0); HGB 13.1 gm/dL (13.0-17.5); Lymphocytes # (A) 1.4 k/uL (1.0-4.8); Lymphocytes % (A) 19 %; MCH 31.3 pg (25.0-35.0); MCHC 32.4 g/dL (31.0-37.0); MCV 96.7 fL (80.0-100.0); Mean Platelet Volume 8.3; Monocytes # (A) 0.7 k/uL (0-1.0); Monocytes % (A) 9 %; Neutrophils # (A) 4.6 k/uL (1.3-7.7); Neutrophils % (A) 65 %; Platelet Count 188 k/uL (150-450); RDW 11.9 % (11.5-15.5)
[2020-08-26 06:02] LABS: Calcium 9.1 mg/dL (8.4-10.2); Potassium 3.8 mmol/L (3.5-5.1)
[2020-08-26] MEDS: LEVOTHYROXINE 100 MCG TAB PO SCH (06:25)
[2020-08-26] MEDS: PANTOPRAZOLE 40 MG TABLET PO SCH (06:26)
[2020-08-26] MEDS ORDERED: amLODIPine 10 MG TAB PO SCH (09:30)
[2020-08-26] MEDS: HEPARIN SODIUM,PORCINE 5,000 UNIT/ML 1 ML VIAL SQ SCH (09:38)
[2020-08-26] MEDS: hydrALAZINE HCL 50 MG TAB PO SCH (09:39)
[2020-08-26] MEDS: VALSARTAN 160 MG TAB PO SCH (09:39)
[2020-08-26] MEDS: ASPIRIN 81 MG PO SCH (09:39)
[2020-08-26] MEDS: CALCIUM CARBONATE 500 MG CHEWABLE PO SCH (09:39)
[2020-08-26] MEDS: MULTIVITAMINS, THERA 1 EACH TAB PO SCH (09:39)
[2020-08-26] MEDS: CHOLECALCIFEROL 1,000 UNIT TAB PO SCH (09:39)
--- NOTE | 2020-08-26 12:06 | P.PN ---
Subjective HISTORY OF PRESENTING ILLNESS This is a pleasant 80-year-old male past medical history significant for hypertension. He follows in the office with Dr. Washington. He is seen and examined sitting up in the chair in no acute distress. He denies symptoms of chest pain, shortness of breath, dizziness or palpitations. Blood pressure is 156/71 heart rate 65 afebrile maintaining oxygen saturation on room air. Laboratory data reviewed, CBC unremarkable, sodium 137, potassium 3.8, creatinine 1.27. Currently maintained on aspirin 81 mg daily, atorvastatin 40 mg daily, hydralazine 50 mg 3 times a day and valsartan 320 mg daily. Echocardiogram obtain reveals preserved LV systolic function with ejection fraction 50-55%, mild aortic stenosis with a mean gradient of 8 mmHg, mild TR and mild pulmonary hypertension with RVSP of 39 mmHg. PHYSICAL EXAMINATION CONSTITUTIONAL: No apparent distress. HEENT: Head is normocephalic. Pupils are equal, round. Sclerae anicteric. Mucous membranes of the mouth are moist. No JVD. No carotid bruit. CHEST EXAMINATION: Lungs are clear to auscultation. No chest wall tenderness is noted on palpation or with deep breathing. HEART EXAMINATION: Regular rate and rhythm. S1, S2 heard. No murmurs, gallops or rub. EXTREMITIES: 2+ peripheral pulses, no lower extremity edema and no calf tenderness. ASSESSMENT Multifocal atrial rhythm, asymptomatic Hypertension PLAN Add amlodipine 10 mg daily for hypertension management since he stopped beta blockers and nifedipine. Stable for discharge. We will set him up for an outpatient event monitor through the office. The patient will picking supervisor in the office tomorrow. He is agreeable to this plan. Nurse Practitioner note has been reviewed, I agree with a documented findings and plan of care. Patient was seen and examined. Objective - Vital Signs Vital signs: Vital Signs Temp 97.6 F 08/26/20 03:00 Pulse 65 08/26/20 03:00 Resp 16 08/26/20 03:00 BP 156/71 08/26/20 03:00 Pulse Ox 97 08/26/20 10:53 Intake & Output 08/25/20 08/26/20 08/26/20 18:59 06:59 18:59 Intake Total 840 286 Balance 840 286 Intake: Oral 840 286 Other: Voiding Method Toilet Toilet # Voids 3 1 - Labs CBC & Chem 7: 08/26/20 05:22 08/26/20 05:22 Labs: Abnormal Lab Results - Last 24 Hours (Table) 08/26/20 08/26/20 Range/Units 05:22 05:22 RBC 4.20 L (4.30-5.90) m/uL BUN 26 H (9-20) mg/dL Creatinine 1.27 H (0.66-1.25) mg/dL Glucose 106 H (74-99) mg/dL
[2020-08-26 12:14] VITALS: BP 182/88; PULSE 54; RESP 18; TEMP 97.9
--- NOTE | 2020-08-26 16:15 | DS ---
DISCHARGE SUMMARY DATE OF SERVICE: 08/25/2020 FINAL DIAGNOSES: 1. Generalized weakness and tiredness, possibly secondary to bradycardia, improved. 2. Possible sinus bradycardia with atrial fibrillation, severe bradycardia. 3. History of cerebrovascular accident, transient ischemic attack. 4. Hypertension. 5. Hypothyroidism. 6. History of stroke in the right eye. 7. History of glaucoma. 8. History of basal cell carcinoma. 9. History of adenoidectomy. 10.History of back surgery. 11.History of corneal transplant. 12.History of shoulder surgery. 13.FULL CODE. DISCHARGE DISPOSITION: Patient will be discharged in stable condition with guarded prognosis. HISTORY OF PRESENT ILLNESS: This 80-year-old woman was admitted with generalized weakness and tiredness. Patient was found to have some bradycardia. Medication adjusted. The patient improved significantly. Cardiology saw the patient. PHYSICAL EXAMINATION: On exam, vitals are stable. Cardiovascular S1, S2. Abdomen soft. Nervous system: No focal deficits. The patient discharged in stable condition. Guarded prognosis with the following advice and medications: 1. Diet is cardiac. 2. Activity limited until followup. 3. Follow up with Dr. Garrett in 2-3 days. 4. Follow up with Cardiology as recommended. DISCHARGE MEDICATIONS: 1. Calcium 600 mg p.o. daily. 2. Diovan 320 mg daily. 3. Triamterene hydrochlorothiazide 1 daily. 4. Ecotrin 81 mg daily. 5. Latanoprost 1 drop both eyes. 6. Levothyroxine 200 mcg p.o. daily. 7. Lipitor 40 mg q.h.s. 8. Multivitamins. 9. Timolol both eyes. 10.Vitamin D3 2000 daily. 11.Apresoline 50 mg p.o. t.i.d. 12.Norvasc 10 mg p.o. daily. 13.Discontinue nifedipine and Coreg. Once again, the patient discharged in stable condition. Guarded prognosis. MMODL / IJN: [id number] /
== END 2020-08-26 14:10 | disposition home or self-care (01) ==
LOC: EC 10:53 → 3NCARDOBS 13:25
PROVIDERS: ADMIT Hospitalist; ATTEND Hospitalist
DX: R53.1 Weakness (principal); R00.1 Bradycardia, unspecified; I27.20 Pulmonary hypertension, unspecified; Z20.828 Contact with and (suspected) exposure to other viral communicable diseases; E03.9 Hypothyroidism, unspecified; F32.9 Major depressive disorder, single episode, unspecified; I10 Essential (primary) hypertension; I48.91 Unspecified atrial fibrillation; Z79.82 Long term (current) use of aspirin; Z79.890 Hormone replacement therapy; Z79.899 Other long term (current) drug therapy; Z80.9 Family history of malignant neoplasm, unspecified; Z85.828 Personal history of other malignant neoplasm of skin; Z86.73 Personal history of transient ischemic attack (TIA), and cerebral infarction without residual deficits; Z94.7 Corneal transplant status; Z96.651 Presence of right artificial knee joint
CPT/HCPCS: 93005 ×2; 96361 ×3; 96372 ×3; 96360; 99285; 36415; 94760; 93306; 80053; 80048 ×2; 85652; 84443; 82533; 83605; 83735; 84484; 85025 ×3; 85610; 85730; 86140; 81003; 71046; 70450; G0378 ×3; U0003; J1644 ×3

== ENCOUNTER 2021-07-22 09:24 | Day surgery (SDC) | payer MEDICARE, BC ==
[2021-07-17 10:30] VITALS: BMI 29.1
[~2021-07-22 09:24] MED LIST changes: -DEXAMETHASONE SOD PHOSPHATE 10 MG/ML 1 ML VIAL IV ONE; -HYDROmorphone 0.5 MG/0.5 ML SYRINGE IVP PRN; -LACTATED RINGERS 1,000 ML IV SCH; -LIDOCAINE 1% 20 ML VIAL (10MG/ML) FOR IV START INTRADERMA PRN; -MIDAZOLAM 2 MG/2 ML VIAL IV PRN; -ONDANSETRON 4 MG/2 ML VIAL IVP ONE; -Pre Op ABX Message 1 EACH MISC MISCELLANE ONE; -SCOPOLAMINE 1.5MG/72HR PATCH TRANSDERM ONE; +SODIUM CHLORIDE 0.9% 1,000 ML IV SCH
[2021-07-22 10:28] VITALS: BP 163/74; PULSE 49; RESP 16; TEMP 97.4
[2021-07-22] MEDS ORDERED: LIDOCAINE 1% INJ 10MG/ML (20 ML MDV) SQ ONE (11:41)
--- NOTE | 2021-07-22 11:57 | P.EPPROC ---
- EP Procedure Note Electrophysiology Procedure Note: Loop monitor implant Primary physicians: Dr. Rosendo Garrett Bead Preparer: Dr. Washington Indication: Paroxysmal atrial fibrillation, GI bleeding history, Sick Sinus Syndrome/tendency for bradycardia Patient was brought to the EP lab in a fasting state. Written informed consent was obtained prior to the procedure. The left pectoral area was prepped and draped per protocol. Intravenous antibiotic was administered preoperatively. A subcutaneous Loop monitor was implanted successfully and the wound was closed per protocol. The device was programmed to detect significant michael- arrhythmic and tachy-arrhythmic events, per protocol. Device and programming details: Programmed for A. fib detection and bradycardia detection Patient underwent EP procedure with monitoring of the level of consciousness and physiologic parameters including but not limited to vital signs and oxygenation. Patient tolerated the procedure well without any acute complications. Start time: 1140 Stop time: 1152
--- NOTE | 2021-07-22 11:59 | P.PRLE ---
RE: Jovayn Acosta Dear Rosendo Lyles has paroxysmal atrial fibrillation, history of GI bleeding as well as a tendency for bradycardia He underwent implantation of a loop monitor today This will help us monitor for both atrial fibrillation as well as bradycardia So far I have not made any changes in his medications and he will continue xarelto and carvedilol Thank you for entrusting me with the care of the patient Warm regards Sincerely Ramirez Washington
== END 2021-07-22 12:50 | disposition home or self-care (01) ==
LOC: CATHEP 09:24
PROVIDERS: ATTEND Internal Medicine Clinical Cardiac Electrophysiology
DX: I48.0 Paroxysmal atrial fibrillation (principal); I49.5 Sick sinus syndrome
CPT/HCPCS: 33285; C1764; J0690; J2001

== ENCOUNTER → 2023-10-23 | Outpatient (CLI) | payer MEDICARE ==
--- NOTE | 2023-10-23 14:13 | US ---
EXAMINATION TYPE: US kidneys/renal and bladder DATE OF EXAM: 10/23/2023 COMPARISON: 07/13/2019 CLINICAL INDICATION: Male, 83 years old with history of R31.29 OTHER MICROSCOPIC HEMATURIA; Visible b lood in urine, happened after coughing fit. Patient states that since then, there has been no more bl ood. No other symptoms. EXAM MEASUREMENTS: Right Kidney: 11.3 x 5.4 x 5.6 Left Kidney: 11.7 x 5.9 x 5.0 Slightly limited due to overlying bowel gas Right Kidney: No hydronephrosis or masses seen. Left Kidney: No hydronephrosis or masses seen. Bladder: wnl Bilateral Jets seen: Yes There is no evidence for hydronephrosis at this point in time. No nephrolithiasis is seen. No radha s are identified. The urinary bladder is anechoic. Bilateral ureteral jets are seen. IMPRESSION: No evidence for obstructive uropathy.
== END | disposition home or self-care (01) ==
LOC: RADUSWWP 13:26
PROVIDERS: ATTEND Family Medicine
DX: R31.29 Other microscopic hematuria (principal)
CPT/HCPCS: 76770